=== PATIENT | female | born 1950 | race Caucasian/White ===

== ENCOUNTER 2022-03-18 06:17 | Emergency (ER) | payer MEDICARE ==
[~2022-03-18] VITALS: Ht 167.6 cm; Wt 79.4 kg
[~2022-03-18 06:17] MED LIST: ALBU90OI INH; Prednisone20 MG PO
[2022-03-18] MEDS ORDERED: Prednisone50 MG PO (07:48)
[2022-03-18] MEDS ORDERED: ALBU90OI INH (07:48)
[2022-03-18] MEDS ORDERED: DOXY100 PO (07:48)
== END 2022-03-18 08:24 | disposition home or self-care (01) ==
LOC: ER 06:17
DX: J20.9 Acute bronchitis, unspecified (principal); I50.9 Heart failure, unspecified; J45.909 Unspecified asthma, uncomplicated
CPT/HCPCS: 94644; 94664; J2930